=== PATIENT | female | born 1985 | race Caucasian/White ===

== ENCOUNTER 2022-03-11 00:50 | Observation (INO) | payer OTHER ==
[~2022-03-11] VITALS: Ht 170.2 cm; Wt 83.9 kg
[2022-03-11] MEDS ORDERED: PRETAB PO (01:20)
[2022-03-11 01:21] VITALS: BP 111/53
[2022-03-11] MEDS ORDERED: LACTATED RINGERS 1,000 ML IV SCH (01:45)
[2022-03-11] MEDS ORDERED: MORPHINE SULFATE 5 MG/ML VIAL IVP PRN (01:45)
[2022-03-11] MEDS ORDERED: LACTATED RINGERS 1,000 ML IV ONE (01:45)
[2022-03-11] MEDS ORDERED: ONDANSETRON 4 MG/2 ML VIAL IVP PRN (01:45)
[2022-03-11] MEDS: TERBUTALINE 1 MG/ML VIAL SUBQ SCH ×2 (01:59→02:37)
--- NOTE | 2022-03-11 09:11 | NUR ---
PATIENT HAS BEEN SCREENED AND CATEGORIZED LOW NUTRITION RISK. PATIENT WILL BE SEEN WITHIN 7 DAYS OF ADMISSION. 03/11/22-03/17/[address]
== END 2022-03-11 09:40 | disposition home or self-care (01) ==
LOC: MLD 00:50
PROVIDERS: ADMIT Obstetrics & Gynecology; ATTEND Obstetrics & Gynecology
DX: O26.893 Other specified pregnancy related conditions, third trimester (principal); R10.30 Lower abdominal pain, unspecified; Z3A.30 30 weeks gestation of pregnancy
CPT/HCPCS: 36415; 59025; 76817; 81000; 82731; 82948; 96360; 96361; 96372; G0378; G0379; J3105; J7120; Q0092

== ENCOUNTER 2022-04-14 19:43 | Observation (INO) | payer OTHER ==
[~2022-04-14] VITALS: Ht 160 cm; Wt 83.0 kg
[~2022-04-14 19:43] MED LIST: PRETAB PO
[2022-04-14] MEDS ORDERED: METF-1139 PO (21:04)
[2022-04-14 21:05] VITALS: BP 118/63
== END 2022-04-14 21:22 | disposition home or self-care (01) ==
LOC: MLD 19:43
PROVIDERS: ADMIT Obstetrics & Gynecology; ATTEND Obstetrics & Gynecology
DX: O36.8130 Decreased fetal movements, third trimester, not applicable or unspecified (principal); O24.410 Gestational diabetes mellitus in pregnancy, diet controlled; Z3A.39 39 weeks gestation of pregnancy
CPT/HCPCS: 59025; 81000; G0378

== ENCOUNTER 2022-04-26 12:28 | Inpatient (IN) | payer OTHER ==
[~2022-04-26] VITALS: Ht 170.2 cm; Wt 83.5 kg
[~2022-04-26 12:28] MED LIST changes: +METF-1139 PO
[2022-04-26] MEDS ORDERED: OXYTOCIN 20 UNITS in LACTATED RINGERS 1,000 ML IV SCH (13:05)
[2022-04-26 13:47] LABS: APPEARANCE,URINE CLEAR (CLEAR); BILIRUBIN,URINE NEGATIVE (NEGATIVE); BLOOD, URINE NEGATIVE (NEGATIVE); COLOR,URINE YELLOW (YELLOW); LEUKOCYTE ESTERASE ,URINE TRACE (NEGATIVE); NITRITE, URINE NEGATIVE (NEGATIVE); PH,URINE 6.5 (5.0-9.0); UGLUCOSE NEGATIVE (NEGATIVE)
[2022-04-26 13:56] LABS: BASOPHILS % (AUTO) 0.2 % (0.0-2.0); EOSINOPHILS # (AUTO) 0.3 K/uL (0-0.4); EOSINOPHILS % (AUTO) 3.9 % (0.0-4.0); HEMATOCRIT 32.8 % (36-48); HEMOGLOBIN 11.1 g/dL (12.0-16.0); LYMPHOCYTES # (AUTO) 1.6 K/uL (2.5-16.5); MEAN CORPUSCULAR HEMOGLOBIN 28 pg (27-31); MEAN CORPUSCULAR HGB CONC 34 g/dL (33-37); MEAN CORPUSCULAR VOLUME 83.3 fL (80-94); MONOCYTES # (AUTO) 0.4 K/uL (0.8-1.0); MONOCYTES % (AUTO) 4.8 % (1.7-9.3); NEUTROPHILS # (AUTO) 6.5 K/uL (1.8-7.7); NEUTROPHILS % (AUTO) 73.1 % (42.2-75.2); PLATELET COUNT (AUTO) 249 K/uL (140-450); RED BLOOD CELL COUNT(AUTO) 3.94 MIL/uL (4.20-5.40); RED CELL DISTRIBUTION WIDTH 14.2 % (11.6-13.7); WHITE BLOOD COUNT (AUTO) 8.8 K/uL (4.8-10.8)
[2022-04-26 14:11] LABS: OTHER CASTS, URINE None Seen /LPF (None Seen); RBC,URINE 0-5 /HPF (0-5); WBC,URINE 0-5 /HPF (0-5)
[2022-04-26] MEDS: LACTATED RINGERS 500 ML IV SCH ×4 (14:15→23:46)
[2022-04-26 14:33] LABS: ALBUMIN 2.6 g/dL (3.4-5.0); CARBON DIOXIDE 20.9 mmol/L (21-32); CREATININE 0.5 mg/dL (0.6-1.3); POTASSIUM 3.9 mmol/L (3.5-5.1); TOTAL BILIRUBIN 0.3 mg/dL (0.0-1.0)
[2022-04-26] MEDS ORDERED: OXYTOCIN 20 UNITS/LR PREMIX 1,000 ML IV ONE (15:10)
[2022-04-26 15:45] VITALS: BP 110/64
[2022-04-26 20:11] LABS: PROTHROMBIN TIME 8.8 secs (10.8-13.4)
[2022-04-26] MEDS ORDERED: ROPIVACAINE 0.2%/NS PREMIX 200 ML EPI ONE (20:22)
[2022-04-26] MEDS ORDERED: fentaNYL citrate 0.05 MG/ML VIAL ONE (20:23)
[2022-04-27] MEDS ORDERED: CARBOPROST 250 MCG/ML AMP IM PRN (02:50)
[2022-04-27] MEDS ORDERED: METHYLERGONOVINE 0.2 MG/ML AMP IM PRN ×2 (02:50→05:00)
[2022-04-27] MEDS ORDERED: MEASLES, MUMPS, AND RUBELLA 1 VIAL SQVAC ONE (05:00)
[2022-04-27] MEDS ORDERED: BENZOCAINE/MENTHOL 20%-0.5% 60 GM CAN TP PRN (05:00)
[2022-04-27] MEDS ORDERED: OXYTOCIN 10 UNITS/ML VIAL IM PRN (05:00)
[2022-04-27] MEDS ORDERED: METHYLERGONOVINE 0.2 MG TAB PO PRN (05:00)
[2022-04-27] MEDS ORDERED: IBUPROFEN 800 MG TAB ONE (05:06)
--- NOTE | 2022-04-27 09:13 | NUR ---
PATIENT HAS BEEN SCREENED AND CATEGORIZED LOW NUTRITION RISK. PATIENT WILL BE SEEN WITHIN 7 DAYS OF ADMISSION. 05/03/[address]
[2022-04-27] MEDS: HYDROcodone/APAP 5/325 MG 1 TAB TAB PO PRN ×2 (11:06→18:09)
[2022-04-27] MEDS: IBUPROFEN 800 MG TAB PO PRN ×2 (14:06→22:20)
[2022-04-28] MEDS: IBUPROFEN 800 MG TAB PO PRN (06:57)
[2022-04-28 07:02] LABS: HEMATOCRIT 30.4 % (36-48); HEMOGLOBIN 10.3 g/dL (12.0-16.0)
[2022-04-28] MEDS: HYDROcodone/APAP 5/325 MG 1 TAB TAB PO PRN (11:19)
== END 2022-04-28 13:25 | disposition home or self-care (01) | DRG 560 ==
LOC: MLD 12:28 → MFCC 04-27 04:57
PROVIDERS: ADMIT Obstetrics & Gynecology; ATTEND Obstetrics & Gynecology
PROC: 10E0XZZ Delivery of Products of Conception, External Approach (ICD-10-PCS; principal; 2022-04-27)
PROC: 3E0R3BZ Introduction of Anesthetic Agent into Spinal Canal, Percutaneous Approach (ICD-10-PCS; 2022-04-27)
PROC: 00HU33Z Insertion of Infusion Device into Spinal Canal, Percutaneous Approach (ICD-10-PCS; 2022-04-27)
DX: O36.63X0 Maternal care for excessive fetal growth, third trimester, not applicable or unspecified (principal); Z37.0 Single live birth; D62 Acute posthemorrhagic anemia; O24.425 Gestational diabetes mellitus in childbirth, controlled by oral hypoglycemic drugs; Z3A.37 37 weeks gestation of pregnancy; O90.81 Anemia of the puerperium; Z20.822 Contact with and (suspected) exposure to COVID-19
CPT/HCPCS: 36415; 51702; 59409; 80053; 81001; 82948; 85018; 85025; 85610; 85730; 86592; 86886; 86900; 86901; J2590; J2795; J3010; J7120

== ENCOUNTER 2024-05-19 23:40 | Inpatient (IN) | payer OTHER ==
[~2024-05-19] VITALS: Ht 170.2 cm; Wt 87.1 kg
[~2024-05-19 23:40] MED LIST changes: -METF-1139 PO
[2024-05-20 01:47] LABS: BASOPHILS # (AUTO) 0.1 K/uL (0.00-0.22); BASOPHILS % (AUTO) 0.7 % (0.0-2.0); EOSINOPHILS # (AUTO) 0.4 K/uL (0-0.4); EOSINOPHILS % (AUTO) 3.7 % (0.0-4.0); HEMATOCRIT 31.8 % (36-48); HEMOGLOBIN 10.8 g/dL (12.0-16.0); LYMPHOCYTES # (AUTO) 2.7 K/uL (2.5-16.5); LYMPHOCYTES % (AUTO) 22.9 % (20.5-51.1); MEAN CORPUSCULAR HEMOGLOBIN 29 pg (27-31); MEAN CORPUSCULAR HGB CONC 34 g/dL (33-37); MEAN CORPUSCULAR VOLUME 84.9 fL (80-94); MONOCYTES # (AUTO) 0.5 K/uL (0.8-1.0); MONOCYTES % (AUTO) 4.5 % (1.7-9.3); NEUTROPHILS % (AUTO) 68.2 % (42.2-75.2); PLATELET COUNT (AUTO) 239 K/uL (140-450); RED BLOOD CELL COUNT(AUTO) 3.75 MIL/uL (4.20-5.40); RED CELL DISTRIBUTION WIDTH 14.2 % (11.6-13.7); WHITE BLOOD COUNT (AUTO) 11.7 K/uL (4.8-10.8)
[2024-05-20 01:52] LABS: APPEARANCE,URINE CLEAR (CLEAR); BILIRUBIN,URINE NEGATIVE (NEGATIVE); BLOOD, URINE NEGATIVE (NEGATIVE); COLOR,URINE YELLOW (YELLOW); LEUKOCYTE ESTERASE ,URINE TRACE (NEGATIVE); NITRITE, URINE NEGATIVE (NEGATIVE); PROTEIN,URINE NEGATIVE (NEGATIVE); UGLUCOSE NEGATIVE (NEGATIVE); UROBILINOGEN,URINE 0.2 EU/dL (0.2 - 1)
[2024-05-20 02:04] LABS: ALBUMIN 2.5 g/dL (3.4-5.0); ANION GAP 15.1 (8-16); CALCIUM 8.8 mg/dL (8.5-10.1); CARBON DIOXIDE 20.4 mmol/L (21-32); CREATININE 0.5 mg/dL (0.6-1.3); INR 0.89 (0.8-1.2); PARTIAL THROMBOPLASTIN TIME 25.6 secs (22-35.6); POTASSIUM 3.5 mmol/L (3.5-5.1); PROTHROMBIN TIME 9.5 secs (10.8-13.4); TOTAL BILIRUBIN 0.4 mg/dL (0.0-1.0); TOTAL PROTEIN, SERUM 6.7 g/dL (6.4-8.2)
[2024-05-20 02:07] LABS: BACTERIA,URINE 10-30 (MOD) /HPF (None Seen); MUCUS,URINE 1+ /LPF (None Seen); RBC,URINE 0-5 /HPF (0-5); SQUAMOUS EPITHELIAL CELL,UR 0-3 (FEW) /LPF (0-3 (FEW))
[2024-05-20] MEDS: LACTATED RINGERS 1,000 ML IV SCH (04:10)
[2024-05-20] MEDS: MISOPROSTOL 25 MCG TAB VG PRN (04:15)
--- NOTE | 2024-05-20 09:14 | NUR ---
PATIENT HAS BEEN SCREENED AND CATEGORIZED LOW NUTRITION RISK. PATIENT WILL BE SEEN WITHIN 7 DAYS OF ADMISSION. 05/26/[address]
[2024-05-20] MEDS ORDERED: ROPIVACAINE 0.2%/NS PREMIX 200 ML EPI ONE (09:36)
[2024-05-20] MEDS ORDERED: OXYTOCIN/0.9 % SODIUM CHLORIDE 500 ML IV ONE (17:50)
[2024-05-20] MEDS: METHYLERGONOVINE 0.2 MG/ML AMP IM PRN (18:38)
[2024-05-20] MEDS ORDERED: BENZOCAINE/MENTHOL 20%-0.5% 60 GM CAN TP PRN (18:45)
[2024-05-20] MEDS ORDERED: OXYTOCIN 10 UNITS/ML VIAL IM PRN (18:45)
[2024-05-20] MEDS ORDERED: METHYLERGONOVINE 0.2 MG/ML AMP IM PRN (18:45)
[2024-05-20] MEDS ORDERED: TEMAZEPAM 15 MG CAP PO PRN (18:45)
[2024-05-20] MEDS ORDERED: MEASLES, MUMPS, AND RUBELLA 1 VIAL SQVAC ONE (18:45)
[2024-05-20] MEDS: IBUPROFEN 800 MG TAB PO PRN (20:01)
[2024-05-20] MEDS ORDERED: DOCUSATE SOD/SENNA 50/8.6 MG 1 TAB PO SCH (21:00)
[2024-05-20] MEDS: oxyCODONE/APAP 5/325 MG 1 TAB TAB PO PRN (23:13)
[2024-05-20] MEDS: bisacodyL 5 MG TABEC PO SCH (23:19)
[2024-05-21 08:02] LABS: HEMATOCRIT 30.5 % (36-48); HEMOGLOBIN 10.2 g/dL (12.0-16.0)
[2024-05-21] MEDS ORDERED: MEDS-TO-BEDS MC SCH (21:00)
[2024-05-21] MEDS ORDERED: DOCUSATE SOD/SENNA 50/8.6 MG 1 TAB PO SCH (21:00)
== END 2024-05-22 13:50 | disposition home or self-care (01) | DRG 560 ==
LOC: MLD 23:40 → MFCC 05-20 22:05
PROVIDERS: ADMIT Obstetrics & Gynecology; ATTEND Obstetrics & Gynecology
PROC: 10E0XZZ Delivery of Products of Conception, External Approach (ICD-10-PCS; principal; 2024-05-20)
PROC: 3E0R3BZ Introduction of Anesthetic Agent into Spinal Canal, Percutaneous Approach (ICD-10-PCS; 2024-05-20)
PROC: 00HU33Z Insertion of Infusion Device into Spinal Canal, Percutaneous Approach (ICD-10-PCS; 2024-05-20)
PROC: 3E033VJ Introduction of Other Hormone into Peripheral Vein, Percutaneous Approach (ICD-10-PCS; 2024-05-20)
DX: O80 Encounter for full-term uncomplicated delivery (principal); Z37.0 Single live birth; Z3A.37 37 weeks gestation of pregnancy
CPT/HCPCS: 36415; 51702; 59200; 59409; 76805; 80053; 81001; 85018; 85025; 85610; 85730; 86592; 86886; 86900; 86901; 87086; J2210; J2590; J2795; Q0092